=== PATIENT | female | born 1990 ===

== ENCOUNTER 2020-12-09 11:44 | Outpatient (CLI) | payer MEDICAID ==
[~2020-12-09] VITALS: Ht 167.6 cm; Wt 83.6 kg
[2020-12-09 12:31] VITALS: BP 122/73
[2020-12-09] MEDS ORDERED: PREN1TAB10 PO (12:44)
[2020-12-09 12:59] LABS: AMPHETAMINE SCREEN, URINE Negative (Negative); BARBITURATE SCREEN, URINE Negative (Negative); BENZODIAZEPINE SCREEN, URINE Negative (Negative); CANNABINOID SCREEN, URINE Negative (Negative); COCAINE SCREEN, URINE Negative (Negative); METHADONE SCREEN, URINE Negative (Negative); OPIATE SCREEN, URINE Negative (Negative)
[2020-12-09 13:12] LABS: MICROSCOPIC INDICATED
== END 2020-12-09 13:08 | disposition home or self-care (01) ==
LOC: LDOP 11:44
PROVIDERS: ATTEND Student in an Organized Health Care Education/Training Program
DX: O36.8120 Decreased fetal movements, second trimester, not applicable or unspecified (principal); Z3A.26 26 weeks gestation of pregnancy
CPT/HCPCS: 80307; 81001; 87086; 99211; G0463